=== PATIENT | male | born 1995 | race Caucasian/White ===

== ENCOUNTER 2017-09-07 12:05 | Emergency (ER) | payer BC, OTHER ==
[2017-09-07] MEDS: diazePAM 5 MG TAB PO (13:12)
== END 2017-09-07 13:49 | disposition home or self-care (01) ==
LOC: M ED 12:05
DX: S46.812A Strain of other muscles, fascia and tendons at shoulder and upper arm level, left arm, initial encounter (principal); M54.12 Radiculopathy, cervical region; X58.XXXA Exposure to other specified factors, initial encounter; Y92.39 Other specified sports and athletic area as the place of occurrence of the external cause; Y93.89 Activity, other specified; Y99.9 Unspecified external cause status
CPT/HCPCS: 99283